=== PATIENT | male | born 1980 | race Caucasian/White ===

== ENCOUNTER → 2024-07-27 06:26 | Day surgery (SDC) | payer OTHER, SELFPAY | LOC: GI 06:26 | PROVIDERS: ATTENDING PHYSICIAN Internal Medicine Gastroenterology | DX: K63.5 Polyp of colon (principal); K64.8 Other hemorrhoids; K22.9 Disease of esophagus, unspecified; K31.7 Polyp of stomach and duodenum; B37.81 Candidal esophagitis | CPT/HCPCS: 45385; 43239; 88305; 88112 ==